=== PATIENT | male | born 1960 | race Caucasian/White ===

== ENCOUNTER 2018-07-14 20:27 | Inpatient (IN) ==
[2018-07-14] MEDS ORDERED: SODIUM CHLORIDE 0.9% 1000ML 2,000 ML IV SCH (20:45)
--- NOTE | 2018-07-14 20:49 | CT Scan Report ---
CT SCAN OF THE BRAIN WITHOUT IV CONTRAST CLINICAL HISTORY: Fall. Head injury. Seizure. COMPARISON STUDY: No priors. TECHNIQUE: Unenhanced axial CT scan of the brain is performed from the vertex to the skull base. A d ose lowering technique was utilized adhering to the principles of ALARA. The examination is degraded by suboptimal positioning within the CT gantry as well as motion artifact. FINDINGS: Brain parenchyma: The brain parenchyma is normal in appearance. There is no hemorrhage, mass effect, or evidence of acute territorial ischemia by CT criteria. Hamilton-white matter differentiation is preser graciela. No extra-axial fluid collection is seen. Ventricles, sulci, cisterns: Normal in configuration. Intracranial vasculature: There is mild atherosclerotic calcification of the cavernous carotid arteri es. Calvarium: There is no depressed calvarial fracture. Sinuses and mastoids: The visualized paranasal sinuses are clear. The mastoid air cells are well pneu matized. Orbits: The bony orbits are grossly intact. IMPRESSION: There is no hemorrhage, mass effect, or evidence of acute territorial ischemia by CT hector la. Electronically signed by: Gopi Light M.D. 07/14/2018 8:48 PM
--- NOTE | 2018-07-14 21:00 | CT Scan Report ---
CT SCAN OF THE CERVICAL SPINE CLINICAL HISTORY: Fall. Seizure. COMPARISON STUDY: No priors. TECHNIQUE: CT scan of the cervical spine is performed from the skull base to the upper thoracic spine . Images are reviewed in the axial, sagittal, and coronal planes. IV contrast was not administered fo r this examination. A dose lowering technique was utilized adhering to the principles of ALARA. CT DOSE: 1310.13 mGy.cm FINDINGS: Skeletal structures: The skeletal structures are well mineralized. There is no evidence of fracture o r subluxation involving the cervical spine. Vertebral body height and alignment are maintained. There is straightening of the cervical lordosis. Anterior osteophytes are seen throughout. The odontoid p rocess and lateral masses are intact. The atlantoaxial articulation is preserved noting productive de generative change. The spinous processes appear intact. There is mild to moderate multilevel cervical spondylosis. Uncovertebral and facet arthropathy contribute to neural foraminal narrowing at several levels. Intervertebral discs: The disc spaces are maintained. Central canal: A posterior disc osteophyte complex at C3-C4 may contribute to acquired compromise of the central canal. Soft tissues: The prevertebral and paraspinous soft tissues are within normal limits. Calvarium: The visualized calvarium at the skull base appears intact. Brain parenchyma: Partially visualized brain parenchyma the skull base is within normal limits. Sinuses and mastoids: The visualized paranasal sinuses are clear. The mastoid air cells are well pneu matized. Lung apices: Clear as visualized. IMPRESSION: 1. There is no evidence of fracture or subluxation involving the cervical spine. 2. Spondylotic change as above. Electronically signed by: Gopi Light M.D. 07/14/2018 8:59 PM
[2018-07-14 21:15] LABS: Basophils # (auto) 0.03 K/uL (0-0.2); Basophils % (auto) 0.2 %; Eosinophils # (auto) 0.21 K/uL (0-0.5); Eosinophils % (auto) 1.4 %; Hematocrit (blood only) 40.1 % (42-52); Hemoglobin 13.3 g/dL (14.0-18.0); Immature Granulocytes # (auto) 0.11 K/uL (0.00-0.02); Immature Granulocytes % (auto) 0.8 %; Lymphocytes # (auto) 4.08 K/uL (1.2-3.4); Mean Corpuscular Hgb Conc 33.2 g/dL (32-36); Mean Corpuscular Volume 86.4 fL (80-100); Mean Platelet Volume 9.8 fL (7.4-10.4); Monocytes # (auto) 0.72 K/uL (0.11-0.59); Monocytes % (auto) 4.9 %; Neutrophils # (auto) 9.42 K/uL (1.4-6.5); Neutrophils % (auto) 64.7 %; Platelet Count 349 K/uL (130-400); RDW Coefficient of Variation 13.2 % (11.5-14.5); RDW Standard Deviation 42.1 fL (36.4-46.3); Red Blood Count 4.64 M/uL (4.7-6.1); White Blood Count 14.57 K/uL (4.8-10.8)
[2018-07-14 21:33] LABS: Alanine Aminotransferase 26 U/L (12-78); Albumin Level 3.6 gm/dl (3.4-5.0); Aspartate Aminotransferase 18 U/L (15-37); BUN Creatinine Ratio 11.8 (10-20); Blood Urea Nitrogen 22 mg/dl (7-18); Calcium 8.9 mg/dl (8.5-10.1); Carbon Dioxide 14 mmol/L (21-32); Chloride 103 mmol/L (98-107); Creatinine Clr Calc Pharmacy 51.1 ml/min; Est GFR (African American) 45.5; Est GFR (Non-African American) 39.2; Glucose 272 mg/dl (70-99); Potassium 4.2 mmol/L (3.5-5.1); Sodium 138 mmol/L (136-145)
[2018-07-14 21:38] LABS: Albumin Globulin Ratio 0.9 (0.9-2); Alkaline Phosphatase 41 U/L (45-117); Bilirubin,Total 0.3 mg/dl (0.2-1); Globulin 3.9 gm/dl (2.5-4.0); Total Protein 7.5 gm/dl (6.4-8.2); Troponin I < 0.015 ng/ml (0-0.045)
--- NOTE | 2018-07-14 21:42 | XRay Report ---
SINGLE VIEW CHEST CLINICAL HISTORY: Seizure. FINDINGS: An AP, portable, upright chest radiograph is compared to study dated 10/03/2015 and correlat ed with chest CT dated 10/04/2015. The examination is degraded by portable technique, apical lordotic positioning, and patient rotation. The heart is top normal for projection. The mediastinal contour i s within normal limits. The lungs and pleural spaces are clear. No pneumothorax is seen. The bony tho rax is grossly intact. IMPRESSION: No active disease in the chest. Electronically signed by: Gopi Light M.D. 07/14/2018 9:41 PM
[2018-07-14 21:52] LABS: Appearance Urine Clear (Clear); Bacteria Urine Automated 1+ (Negative); Bilirubin Urine Negative (Negative); Blood Urine Negative (Negative); Color Urine Yellow; Epithelial Cell Urine Auto 0-5 /lpf (0-5); Glucose Urine UA 3+ (Negative); Ketones Urine Negative (Negative); Leukocyte Esterase Urine 1+ (Negative); Nitrite Urine Negative (Negative); Protein Urine Negative (Negative); RBC Urine Automated 0-4 /hpf (0-4); Specific Gravity Urine 1.022 (1.000-1.030); Urobilinogen Urine Negative (Negative); pH Urine 5.5 (4.5-7.5)
[2018-07-14 21:57] LABS: Amphetamines+Metham, Urine Neg (Neg); Barbiturates, Urine Neg (Neg); Benzodiazepine, Urine Neg (Neg); Cocaine, Urine Neg (Neg); MDMA (Ecstacy), Urine Neg (Neg); Methadone, Urine Neg (Neg); Opiate, Urine Neg (Neg); Phencyclidine, Urine Neg (Neg)
--- NOTE | 2018-07-14 22:54 | History & Physical Report ---
Date of Service July 14, 2018 Assessment & Plan (1) Seizure: Pt presented to ER with reported seizure like activity. reported this evening patient was sitting on couch when he started staring and not responding followed by shaking and unresponsive. En route EMS reports seizure activity and pt was given 2mg versed. Reported upon ER arrival pt unresponsive then awakens. Reported urinary incontinence. Patient reports slipped and fell on wet floor today and denies hitting head or LOC. Reported similar episode one year ago seen at outside facility with no further workup reported. In ER patient afebrile, initially sinus tachycardia 120s down to high 90s, BP 140/71, R: 22, 92% on room air. WBC: 14, Hgb: 13, no significant electrolyte abnormalities. Negative EtOH. Negative tox screen. CT head no acute findings. Patient was given Keppra 1000 mg IV, 2L NSS Possible seizure -Admit to telemetry -Seizure precautions -N.p.o. for now -Keppra 500 twice daily -Ativan 1 mg IV as needed for seizure -EEG -Neurology consult, appreciate recommendations -Monitor CBC, BMP (2) Renal insufficiency: Creatinine: 1.8. Unsure of recent baseline. Records from 2016 showed creatinine of 1.0. -Monitor renal functions, avoid nephrotoxic agents when possible (3) Wrist pain: Patient was reported fall on wet floor today at work injuring right wrist. Denies any other injury. -Pending x-ray right wrist to rule out fracture (4) Diabetes mellitus: DM II with history neuropathy Random glucose 272 -Hold home diabetes medications -NovoLog, Lantus sliding scale per protocol -A1c in a.m. -Continue gabapentin (5) Hypertension: Stable -Hold lisinopril and monitor renal functions -Monitor BP (6) HLD (hyperlipidemia): -Continue statin, fenofibrate DVT Prophylaxis -SCDs Follows with Dr Bustamante - [facility] for routine care Pt was seen with Dr Dillon. See addendum History of Present Illness Chief Complaint: seizure Primary Care Provider: Roderick Bustamante Pt is 57 y/o M with PMH DM II, HTN, HLD presented to ER with complaint of seizure. History obtained from patient and , as patient somewhat groggy. Patient's reports this evening patient was sitting on couch when he started staring and not responding to her. She then noticed him "stiffen up and start shaking with his eyes closed and was not responding". reports this lasted approximately 5 minutes. Did not take BSG at home. EMS was called and reports seizure activity in route and patient was given 2 Versed. Upon ER arrival which is reported patient initially unresponsive and then awakened during ER course. Reported urinary incontinence. reports similar episode occurring approximately 1 year ago and was evaluated at outside ER and reports no further workup. Patient states that he remembers waking up in the morning and going to work. 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 Patient states that he did not hit his head or have any LOC. He denies any dizziness, CP or SOB prior to fall. Patient states that he injured his right wrist with the fall. Patient remembers returning home after work and does not remember anything after. Patient's reports that he ate dinner. Currently pt reports slight LONG and some R wrist discomfort. 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 Denies any recent illness. Denies fever/chills, diaphoresis, N/V/D, neck pain, CP, SOB, palpitations, cough, sore throat, otalgia, rhinorrhea, abdominal pain, extremity edema, rashes, other urinary symptoms. Denies alcohol or drug use. Allergies Allergy/AdvReac Type Severity Reaction Status Date / Time metformin AdvReac Severe Diarrhea Verified 07/14/18 21:59 Home Medications Home Medications Medication Instructions Recorded Confirmed Type acarbose [Precose] 25 mg PO TIDM 07/14/18 07/14/18 History aspirin [Aspir-81] 81 mg PO DAILY 07/14/18 07/14/18 History atorvastatin [Lipitor] 40 mg PO HS 07/14/18 07/14/18 History fenofibrate micronized 134 mg PO DAILY 07/14/18 07/14/18 History gabapentin [Neurontin] 400 mg PO QID 07/14/18 07/14/18 History glipizide [Glucotrol XL] 10 mg PO BID 07/14/18 07/14/18 History liraglutide [Victoza 3-Bill] 1.8 mg SUBCUT DAILY 07/14/18 07/14/18 History lisinopril [Zestril] 10 mg PO DAILY 07/14/18 07/14/18 History Past Med/Surg History Medical History Diabetes mellitus (Chronic) Hypertension (Chronic) HLD (hyperlipidemia) (Chronic) Surgical History H/O removal of cyst (Chronic) Hx of tonsillectomy (Chronic) Social History Preferred Language: Lithuanian Communication Ability: Effective Communication Ability Comment: wakes to stimulus, answers questions appropriately 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 Current Living Situation: Spouse Feels Safe at Home: Yes Safety Concerns: Feels Safe At This Time Smoking Status: Never smoker Hx Alcohol Use: No Hx Substance Use: No Review of Systems All systems reviewed & are unremarkable except as noted in HPI & below Physical Exam Vital Signs (Past 24 Hours): Last Vital Signs Temp 37.2 C 07/14/18 20:40 Pulse 97 H 07/14/18 21:46 Resp 22 07/14/18 20:40 BP 119/58 L 07/14/18 21:46 Pulse Ox 95 07/14/18 21:46 Physical Exam: General: no acute distress, obese Head: normocephalic, atraumatic Eyes: PERRL, EOM's intact, conjunctiva non-injected, anicteric ENT: normal inspection external ears, nose, mucous membranes dry, +chewing tobacco flakes in mouth, no noted tongue laceration Neck: supple, trachea midline, non-tender Lungs: clear, no respiratory distress CV: Regular rhythm, rate 98, slight pretibial edema Abd: normal BS, soft, protuberant, non-tender Ext: no cyanosis, no calf tenderness, R wrist: diffuse tenderness to palpation, limited ROM secondary to discomfort Neuro: A&O to person, place, year. Pt slow to answer questions and slow to follow commands with need of repeat prompting, 3/5 strength bilateral arms and legs Skin: warm, dry Results & Data Laboratory Results Short CBC 07/14/18 Range/Units 20:48 WBC 14.57 H (4.8-10.8) K/uL Hgb 13.3 L (14.0-18.0) g/dL Hct 40.1 L (42-52) % Plt Count 349 (130-400) K/uL BMP 07/14/18 20:48 Sodium 138 Potassium 4.2 Chloride 103 Carbon Dioxide 14 L BUN 22 H Creatinine 1.84 H Glucose 272 H Calcium 8.9 Cardiac Enzymes 07/14/18 Range/Units 20:48 Troponin I < 0.015 (0-0.045) ng/ml Liver Function 07/14/18 Range/Units 20:48 Total Bilirubin 0.3 (0.2-1) mg/dl AST 18 (15-37) U/L ALT 26 (12-78) U/L Alkaline Phosphatase 41 L (45-117) U/L Albumin 3.6 (3.4-5.0) gm/dl Urine 07/14/18 Range/Units 21:17 Urine Color Yellow Urine Appearance Clear (Clear) Urine pH 5.5 (4.5-7.5) Ur Specific [place] 1.022 (1.000-1.030) Urine Protein Negative (Negative) Urine Glucose (UA) 3+ H (Negative) Diagnostic Findings CT HEAD: IMPRESSION: There is no hemorrhage, mass effect, or evidence of acute territorial ischemia by CT criteria. CT C SPINE: IMPRESSION: 1. There is no evidence of fracture or subluxation involving the cervical spine. 2. Spondylotic change as above. CXR: IMPRESSION: No active disease in the chest. ECG Rhythm: sinus tachycardia Findings: + RBBB (incomplete) Supervising Physician Co-Signing Physician Notes HISTORY: Record reviewed. Patient interviewed and examined. Care coordinated with Yulia Calero PA-C. Please refer to her documentation for patient's history. Briefly, 57 YO M with history of hypertension, DM, dyslipidemia. 2 witnessed generalized seizures today, one by family and one by EMS. EMS administered midazolam to control the 2nd episode. Reportedly incontinent with 1 of the episodes. No history of seizure disorder, although he reportedly had a "spell" about a year ago evaluated in another ED. No alcohol abuse. EXAM: General- somnolent, no distress HEENT- atraumatic; sclerae anicteric Neck- supple Lungs- clear to auscultation; no respiratory distress Cardiovascular- RRR; ; no JVD; no pretibial edema Abdomen- + bowel sounds, soft, nontender Extremities- no cyanosis; no calf tenderness Neuro- postictal / sedated; PERRL; unable to follow commands for motor testing Skin- warm & dry DATA: Hgb 13.3, WBC 14,570, Plts 349,000 Na 138, K 4.2, Cl 14, CO2 14, BUN 22, creat 1.84, random glucose 272. UA - 3+ glucose, 1+ leukocyte esteras, 10-30 WBCs, 1+ bacteria. Urine tox screen neg. Other lab studies as noted. Chest x-ray negative. CT head negative. CT cervical spine- spondylotic changes, no fracture. ASSESSMENT AND PLAN: Generalized seizures today. ? similar event last year. CT head negative. K normal. Check Mg with next labs. Urine tox screen negative. Loaded with levitiracetam. Check EEG. Consult Neuro. UA shows leukocyte esterase, WBC's, bacteria. Check urine culture. Right wrist injury from fall. Results of x-ray pending. DM type 2 with elevated blood sugars. Lantus / NovoLog per protocol. Renal insufficiency, ? baseline. IV fluids. Follow. Please refer to JACQUELINE Chandler's documentation for discussion of other issues.
[2018-07-14] MEDS ORDERED: GLUCAGON FOR INJ 1 MG VIAL SQ PRN (23:57)
[2018-07-14] MEDS ORDERED: SODIUM CHLORIDE 0.9% 1000ML 1,000 ML IV SCH (23:57)
[2018-07-14] MEDS ORDERED: DEXTROSE 50% 50 ML SYRINGE IV PRN (23:57)
[2018-07-14] MEDS ORDERED: CARBOHYDRATES FOR HYPOGLYCEMIA PO PRN (23:57)
[2018-07-14] MEDS ORDERED: LORazepam 1 MG/2 ML VIAL IV PRN (23:57)
[2018-07-14] MEDS ORDERED: GLUCOSE 40% GEL 15 GM TUBE PO PRN (23:57)
[2018-07-14] MEDS ORDERED: GLUCOSE 10 TABS/TUBE PO PRN (23:57)
--- NOTE | 2018-07-15 00:11 | Emergency Department Note ---
Entered by Zachariah Hanna acting as a scribe for History of Present Illness General Chief complaint: Seizure Stated complaint: SEIZURES, UNRESPONSIVE Time Seen by Provider: 07/14/18 20:32 Source: EMS Limitations: clinical acuity History of Present Illness Provider complaint: Seizure activity Onset (ago): hour(s) (1) Location: head Pain Consistency: + other (2 episodes) Quality: + other (Seizure-like activity) Associated symptoms: + confusion (Post-ichtal) Treatments prior to arrival: other (2 mg Versed) This history is limited secondary to the clinical status of the patient. The patient is a 57 year old male who presents to the Emergency Room via EMS for multiple seizure episodes. EMS states that per the patient's the patient was sitting on the couch in his residence at 1930 this evening, 1 hour ago, when he began to exhibit "outward posturing" and seizure activity. The estimates that this episode lasted 4 minutes. Upon EMS arrival the patient was post-ictal and exhibiting sonorous respirations. While en route to the ED the patient had another seizure episode that lasted about 30 seconds. EMS then administered 2 mg of Versed and placed the patient on 4L of oxygen via Nasal [place]. The patient has no diagnosed history of seizures, but was here in the ED 1 year ago for a similar episode. The told EMS that when the patient got home from work today he noted that he may have hit his head on a fall. The patient is an insulin dependent Type 1 diabetic. His sugar was 236 upon arrival. Home Medications Home Medications Medication Instructions Recorded Confirmed Type acarbose [Precose] 25 mg PO TIDM 07/14/18 07/14/18 History aspirin [Aspir-81] 81 mg PO DAILY 07/14/18 07/14/18 History atorvastatin [Lipitor] 40 mg PO HS 07/14/18 07/14/18 History fenofibrate micronized 134 mg PO DAILY 07/14/18 07/14/18 History gabapentin [Neurontin] 400 mg PO QID 07/14/18 07/14/18 History glipizide [Glucotrol XL] 10 mg PO BID 07/14/18 07/14/18 History liraglutide [Victoza 3-Bill] 1.8 mg SUBCUT DAILY 07/14/18 07/14/18 History lisinopril [Zestril] 10 mg PO DAILY 07/14/18 07/14/18 History Allergies Allergy/AdvReac Type Severity Reaction Status Date / Time metformin AdvReac Severe Diarrhea Verified 07/14/18 21:59 Past Med/Surg History Medical History Diabetes mellitus (Chronic) Hypertension (Chronic) HLD (hyperlipidemia) (Chronic) Surgical History H/O removal of cyst (Chronic) Hx of tonsillectomy (Chronic) Social History Preferred Language: Mexican Communication Ability: Effective Communication Ability Comment: wakes to stimulus, answers questions appropriately Digital Product Specialist Required: No Current Living Situation: Spouse Feels Safe at Home: Yes Safety Concerns: Feels Safe At This Time Smoking Status: Never smoker Hx Alcohol Use: No Hx Substance Use: No Review of Systems See HPI for pertinent positives & negatives. and A total of 10 systems reviewed and were otherwise negative Physical Exam Vital Signs Vital Signs - 24 hr 07/14/18 20:31 07/14/18 20:34 07/14/18 20:40 Temperature 37.2 C Temperature Source Oral Sepsis Recent Fever Within 48 Hours No Sepsis New/Unexplained Change in Mental Status Yes Sepsis Action Taken by Nursing No Action Required End-Tidal CO2 Pulse Rate 125 H 126 H 131 H Pulse Rate from SpO2 Sensor 125 H 126 H Pulse Rhythm Regular Pulse Strength Normal Respiratory Rate 22 Respiratory Effort / Characteristics Non-Labored Respiratory Depth Normal Respiratory Pattern Regular Blood Pressure 140/71 140/71 Blood Pressure Mean 94 94 Blood Pressure Position Lying Pulse Oximetry 92 93 92 Oxygen Delivery Method Room Air 07/14/18 20:48 07/14/18 21:00 07/14/18 21:01 Temperature Temperature Source Sepsis Recent Fever Within 48 Hours Sepsis New/Unexplained Change in Mental Status Sepsis Action Taken by Nursing End-Tidal CO2 27 26 Pulse Rate 130 H 107 H 106 H Pulse Rate from SpO2 Sensor 119 H 107 H 107 H Pulse Rhythm Pulse Strength Respiratory Rate Respiratory Effort / Characteristics Respiratory Depth Respiratory Pattern Blood Pressure 114/56 L Blood Pressure Mean 75 Blood Pressure Position Pulse Oximetry 91 93 93 Oxygen Delivery Method Room Air 07/14/18 21:15 07/14/18 21:16 07/14/18 21:23 Temperature Temperature Source Sepsis Recent Fever Within 48 Hours Sepsis New/Unexplained Change in Mental Status Sepsis Action Taken by Nursing End-Tidal CO2 27 29 30 Pulse Rate 105 H 111 H 99 H Pulse Rate from SpO2 Sensor 104 H 111 H 99 H Pulse Rhythm Pulse Strength Respiratory Rate Respiratory Effort / Characteristics Respiratory Depth Respiratory Pattern Blood Pressure 98/65 L 123/67 Blood Pressure Mean 76 85 Blood Pressure Position Pulse Oximetry 97 97 99 Oxygen Delivery Method 07/14/18 21:24 07/14/18 21:30 07/14/18 21:31 Temperature Temperature Source Sepsis Recent Fever Within 48 Hours Sepsis New/Unexplained Change in Mental Status Sepsis Action Taken by Nursing End-Tidal CO2 31 33 29 Pulse Rate 103 H 107 H 102 H Pulse Rate from SpO2 Sensor 103 H 107 H 103 H Pulse Rhythm Pulse Strength Respiratory Rate Respiratory Effort / Characteristics Respiratory Depth Respiratory Pattern Blood Pressure 119/71 Blood Pressure Mean 87 Blood Pressure Position Pulse Oximetry 100 97 98 Oxygen Delivery Method 07/14/18 21:45 07/14/18 21:46 07/14/18 22:25 Temperature Temperature Source Sepsis Recent Fever Within 48 Hours Sepsis New/Unexplained Change in Mental Status Sepsis Action Taken by Nursing End-Tidal CO2 33 33 Pulse Rate 98 H 97 H Pulse Rate from SpO2 Sensor 95 H 96 H Pulse Rhythm Pulse Strength Respiratory Rate Respiratory Effort / Characteristics Spontaneous Respiratory Depth Normal Respiratory Pattern Regular Blood Pressure 119/58 L Blood Pressure Mean 78 Blood Pressure Position Pulse Oximetry 95 95 Oxygen Delivery Method Room Air 07/14/18 23:03 Temperature Temperature Source Sepsis Recent Fever Within 48 Hours Sepsis New/Unexplained Change in Mental Status Sepsis Action Taken by Nursing End-Tidal CO2 Pulse Rate 95 H Pulse Rate from SpO2 Sensor Pulse Rhythm Pulse Strength Respiratory Rate 20 Respiratory Effort / Characteristics Respiratory Depth Respiratory Pattern Blood Pressure 119/66 Blood Pressure Mean Blood Pressure Position Pulse Oximetry 96 Oxygen Delivery Method Room Air GENERAL: Sitting up in bed, disheveled, no distress, non-toxic. Tobacco present throughout ortiz. EYE EXAM: normal conjunctiva. OROPHARYNX: no exudate, no erythema, lips, buccal mucosa, and tongue normal and mucous membranes are moist NECK: supple, no nuchal rigidity, no adenopathy, non-tender LUNGS: Clear to auscultation. Normal chest wall mechanics HEART: no murmurs, S1 normal and S2 normal ABDOMEN: abdomen soft, non-tender, normo-active bowel, sounds, no masses, no rebound or guarding. BACK: Back is symmetrical on inspection and there is no deformity, no midline tenderness, no CVA tenderness. SKIN: no rashes and no bruising UPPER EXTREMITIES: upper extremities are grossly normal. LOWER EXTREMITIES: No pitting edema. NEURO EXAM: Normal sensorium. Opens eyes to sternal rub. Spontaneously moves lower extremities. Responds to pain in upper extremities. Course ED COURSE: Vital signs were reviewed and showed normal vitals. The patients medical record was reviewed The above diagnostic studies were performed and reviewed. ED treatments and interventions as stated above. 2056: The patient was evaluated in room A1. A complete history and physical examination was performed. 2147: I reviewed the patient's case with Sidra Hicks [facility] Hospitalist CADEN. She will evaluate the patient for further management. 2150: Upon reevaluation, the patient is resting in bed. I discussed my findings with the patient and he understands and agrees with the treatment plan. Based on the patients age, coexisting illnesses, exam and lab findings the decision to treat as an inpatient was made. The patient remained stable while under my care. The patient will be evaluated for further management. Administered Medications Discontinued Medications Sodium Chloride (Nss 1000ml) 2,000 mls @ 999 mls/hr IV .Q2H1M HARMEET Stop: 07/14/18 22:45 Last Infusion: 07/14/18 23:14 Dose: 0 mls/hr Documented by: [id number] Admin: 07/14/18 21:01 Dose: 999 mls/hr Documented by: [id number] Levetiracetam 1,000 mg/ (Dextrose) 110 mls @ 440 mls/hr IV NOW STA Stop: 07/14/18 21:18 Last Infusion: 07/14/18 23:14 Dose: 0 mls/hr Documented by: [id number] Admin: 07/14/18 21:21 Dose: 440 mls/hr Documented by: [id number] Medical Decision Making Differential Diagnosis Differential diagnosis: Etiologies such as vasovagal event, infection, anemia, hypoglycemia, hypovolemia, electrolyte abnormalities, dysrhythmias, cardiac ischemia, cardiac tamponade, valvular heart disease, structural heart disease, seizure, vascular stenosis/dissection, pulmonary embolism, intracerebral event, toxicological process, neurologic event, as well as others were entertained. Medical Records Attestation: I reviewed the patient's medical records. Home Medications Current Medication List: was personally reviewed by me Laboratory Data Attestation: I reviewed the patient's lab results. Result diagrams: 07/14/18 20:48 07/14/18 20:48 Lab Results 07/14/18 07/14/18 07/14/18 Range/Units 20:48 20:48 20:48 WBC 14.57 H (4.8-10.8) K/uL RBC 4.64 L (4.7-6.1) M/uL Hgb 13.3 L (14.0-18.0) g/dL Hct 40.1 L (42-52) % MCV 86.4 (80-100) fL MCH 28.7 (25-34) pg MCHC 33.2 (32-36) g/dL RDW Std Deviation 42.1 (36.4-46.3) fL RDW Coeff of Love 13.2 (11.5-14.5) % Plt Count 349 (130-400) K/uL MPV 9.8 (7.4-10.4) fL Immature Gran % (Auto) 0.8 % Neut % (Auto) 64.7 % Lymph % (Auto) 28.0 % [place] % (Auto) 4.9 % Eos % (Auto) 1.4 % Baso % (Auto) 0.2 % Immature Gran # (Auto) 0.11 H (0.00-0.02) K/uL Neut # (Auto) 9.42 H (1.4-6.5) K/uL Lymph # (Auto) 4.08 H (1.2-3.4) K/uL [place] # (Auto) 0.72 H (0.11-0.59) K/uL Eos # (Auto) 0.21 (0-0.5) K/uL Baso # (Auto) 0.03 (0-0.2) K/uL Sodium 138 (136-145) mmol/L Potassium 4.2 (3.5-5.1) mmol/L Chloride 103 (98-107) mmol/L Carbon Dioxide 14 L (21-32) mmol/L Anion Gap 21.0 H (3-11) BUN 22 H (7-18) mg/dl Creatinine 1.84 H (0.6-1.4) mg/dl Est Cr Clr Drug Dosing 51.1 ml/min Est GFR ( Amer) 45.5 Est GFR (Non-Af Amer) 39.2 BUN/Creatinine Ratio 11.8 (10-20) Glucose 272 H (70-99) mg/dl Calcium 8.9 (8.5-10.1) mg/dl Total Bilirubin 0.3 (0.2-1) mg/dl AST 18 (15-37) U/L ALT 26 (12-78) U/L Alkaline Phosphatase 41 L (45-117) U/L Troponin I < 0.015 (0-0.045) ng/ml Total Protein 7.5 (6.4-8.2) gm/dl Albumin 3.6 (3.4-5.0) gm/dl Globulin 3.9 (2.5-4.0) gm/dl Albumin/Globulin Ratio 0.9 (0.9-2) Urine Color Urine Appearance (Clear) Urine pH (4.5-7.5) Ur Specific [place] (1.000-1.030) Urine Protein (Negative) Urine Glucose (UA) (Negative) Urine Ketones (Negative) Urine Blood (Negative) Urine Nitrite (Negative) Urine Bilirubin (Negative) Urine Urobilinogen (Negative) Ur Leukocyte Esterase (Negative) Urine WBC (Auto) (0-5) /hpf Urine RBC (Auto) (0-4) /hpf U Hyaline Cast (Auto) (0-5) /lpf U Epithel Cells (Auto) (0-5) /lpf Urine Bacteria (Auto) (Negative) Urine Opiates Screen (Neg) Ur Methadone, Qual (Neg) Urine Barbiturates (Neg) Ur Phencyclidine (PCP) (Neg) U Amphetamin/Meth Scrn (Neg) MDMA (Ecstasy) Screen (Neg) U Benzodiazepines Scrn (Neg) Ur Cocaine Metabolite (Neg) U Marijuana (THC) Screen (Neg) Ethyl Alcohol mg/dL < 3.0 (0-3) mg/dl Hepatitis C Ab Screen (Neg) 07/14/18 07/14/18 07/14/18 Range/Units 20:48 21:17 21:17 WBC (4.8-10.8) K/uL RBC (4.7-6.1) M/uL Hgb (14.0-18.0) g/dL Hct (42-52) % MCV (80-100) fL MCH (25-34) pg MCHC (32-36) g/dL RDW Std Deviation (36.4-46.3) fL RDW Coeff of Love (11.5-14.5) % Plt Count (130-400) K/uL MPV (7.4-10.4) fL Immature Gran % (Auto) % Neut % (Auto) % Lymph % (Auto) % [place] % (Auto) % Eos % (Auto) % Baso % (Auto) % Immature Gran # (Auto) (0.00-0.02) K/uL Neut # (Auto) (1.4-6.5) K/uL Lymph # (Auto) (1.2-3.4) K/uL [place] # (Auto) (0.11-0.59) K/uL Eos # (Auto) (0-0.5) K/uL Baso # (Auto) (0-0.2) K/uL Sodium (136-145) mmol/L Potassium (3.5-5.1) mmol/L Chloride (98-107) mmol/L Carbon Dioxide (21-32) mmol/L Anion Gap (3-11) BUN (7-18) mg/dl Creatinine (0.6-1.4) mg/dl Est Cr Clr Drug Dosing ml/min Est GFR ( Amer) Est GFR (Non-Af Amer) BUN/Creatinine Ratio (10-20) Glucose (70-99) mg/dl Calcium (8.5-10.1) mg/dl Total Bilirubin (0.2-1) mg/dl AST (15-37) U/L ALT (12-78) U/L Alkaline Phosphatase (45-117) U/L Troponin I (0-0.045) ng/ml Total Protein (6.4-8.2) gm/dl Albumin (3.4-5.0) gm/dl Globulin (2.5-4.0) gm/dl Albumin/Globulin Ratio (0.9-2) Urine Color Yellow Urine Appearance Clear (Clear) Urine pH 5.5 (4.5-7.5) Ur Specific [place] 1.022 (1.000-1.030) Urine Protein Negative (Negative) Urine Glucose (UA) 3+ H (Negative) Urine Ketones Negative (Negative) Urine Blood Negative (Negative) Urine Nitrite Negative (Negative) Urine Bilirubin Negative (Negative) Urine Urobilinogen Negative (Negative) Ur Leukocyte Esterase 1+ H (Negative) Urine WBC (Auto) 10-30 H (0-5) /hpf Urine RBC (Auto) 0-4 (0-4) /hpf U Hyaline Cast (Auto) 1-5 (0-5) /lpf U Epithel Cells (Auto) 0-5 (0-5) /lpf Urine Bacteria (Auto) 1+ H (Negative) Urine Opiates Screen Neg (Neg) Ur Methadone, Qual Neg (Neg) Urine Barbiturates Neg (Neg) Ur Phencyclidine (PCP) Neg (Neg) U Amphetamin/Meth Scrn Neg (Neg) MDMA (Ecstasy) Screen Neg (Neg) U Benzodiazepines Scrn Neg (Neg) Ur Cocaine Metabolite Neg (Neg) U Marijuana (THC) Screen Neg (Neg) Ethyl Alcohol mg/dL (0-3) mg/dl Hepatitis C Ab Screen Neg (Neg) Imaging Data Attestation: I personally reviewed and interpreted this imaging study as follow s: Radiologist's Impression: SINGLE VIEW CHEST CLINICAL HISTORY: Seizure. FINDINGS: An AP, portable, upright chest radiograph is compared to study dated 10/03/2015 and correlated with chest CT dated 10/04/2015. The examination is degraded by portable technique, apical lordotic positioning, and patient rotation. The heart is top normal for projection. The mediastinal contour is within normal limits. The lungs and pleural spaces are clear. No pneumothorax is seen. The bony thorax is grossly intact. IMPRESSION: No active disease in the chest. Electronically signed by: Gopi Light M.D. 07/14/2018 9:[address] SCAN OF THE BRAIN WITHOUT IV CONTRAST CLINICAL HISTORY: Fall. Head injury. Seizure. COMPARISON STUDY: No priors. TECHNIQUE: Unenhanced axial CT scan of the brain is performed from the vertex to the skull base. A dose lowering technique was utilized adhering to the principles of ALARA. The examination is degraded by suboptimal positioning within the CT gantry as well as motion artifact. FINDINGS: Brain parenchyma: The brain parenchyma is normal in appearance. There is no hemorrhage, mass effect, or evidence of acute territorial ischemia by CT criteria. Hamilton-white matter differentiation is preserved. No extra-axial fluid collection is seen. Ventricles, sulci, cisterns: Normal in configuration. Intracranial vasculature: There is mild atherosclerotic calcification of the cavernous carotid arteries. Calvarium: There is no depressed calvarial fracture. Sinuses and mastoids: The visualized paranasal sinuses are clear. The mastoid air cells are well pneumatized. Orbits: The bony orbits are grossly intact. IMPRESSION: There is no hemorrhage, mass effect, or evidence of acute jeremias torial ischemia by CT criteria. Electronically signed by: Gopi Light M.D. 07/14/2018 8:[address] SCAN OF THE CERVICAL SPINE CLINICAL HISTORY: Fall. Seizure. COMPARISON STUDY: No priors. TECHNIQUE: CT scan of the cervical spine is performed from the skull base to the upper thoracic spine. Images are reviewed in the axial, sagittal, and coronal planes. IV contrast was not administered for this examination. A dose lowering technique was utilized adhering to the principles of ALARA. CT DOSE: 1310.13 mGy.cm FINDINGS: Skeletal structures: The skeletal structures are well mineralized. There is no evidence of fracture or subluxation involving the cervical spine. Vertebral body height and alignment are maintained. There is straightening of the cervical lordosis. Anterior osteophytes are seen throughout. The odontoid process and lateral masses are intact. The atlantoaxial articulation is preserved noting productive degenerative change. The spinous processes appear intact. There is mild to moderate multilevel cervical spondylosis. Uncovertebral and facet arthropathy contribute to neural foraminal narrowing at several levels. Intervertebral discs: The disc spaces are maintained. Central canal: A posterior disc osteophyte complex at C3-C4 may contribute to acquired compromise of the central canal. Soft tissues: The prevertebral and paraspinous soft tissues are within normal limits. Calvarium: The visualized calvarium at the skull base appears intact. Brain parenchyma: Partially visualized brain parenchyma the skull base is within normal limits. Sinuses and mastoids: The visualized paranasal sinuses are clear. The mastoid air cells are well pneumatized. Lung apices: Clear as visualized. IMPRESSION: 1. There is no evidence of fracture or subluxation involving the cervical spine. 2. Spondylotic change as above. Electronically signed by: Gopi Light M.D. 07/14/2018 8:59 PM ECG Data Attestation: I personally reviewed and interpreted this ECG as follows: Indication: syncope (seizure) Rate (beats per minute): 127 Rhythm: sinus tachycardia Findings: + other (LAD) and + nonspecific-ST abn (inferior); no PVC Blood Pressure Blood Pressure Findings: Normal blood pressure MDM Narrative Patient is a 57-year-old male who presents the ER for 2 seizures prior to arrival. Patient was given IV Versed via EMS and upon arrival to the ER he opens his eyes to sternal rub but is fairly obtunded. He eventually started w aking up and started moving his extremities spontaneously and was able to communicate. Labs were obtained and showed a leukocytosis of 14,000. No significant anemia. Do favor secondary to the seizure. CO2 was low at 14 and creatinine was up at 1.8. Again I believe the CO2 is likely secondary to the seizure. Glucose is only slightly elevated to 70. Do not believe that the Is secondary to DKA. Troponin was negative. UA without ketones which would go against DKA. Tox is negative. CT head and neck was negative. Patient and family were updated bedside. He was given IV fluids and IV Keppra. He was admitted to the hospitalist for further workup of status epilepticus. Impression & Plan Status epilepticus Discharge Plan Visit Data *Final* Discharge Date/Time: 07/14/18 23:03 Chief Complaint: Seizure Stated Complaint: SEIZURES, UNRESPONSIVE ED Provider: Trevor Gonzalez Discharge Problem: Status epilepticus Patient Disposition: Admitted As Inpatient Discharge Instructions Interventions: ED Discharge Assessment Last Done: 07/14/18 23:03 The scribe's documentation has been prepared under my direction and personally reviewed by me in its entirety. I confirm that the note above accurately reflects all work, treatment, procedures, and medical decision making performed by me.
[2018-07-15] MEDS: INSULIN GLARGINE SOLOSTAR 100 UNITS/ML 3 ML PEN SC SCH ×3 (00:47→20:37)
[2018-07-15] MEDS ORDERED: INSULIN ASPART 100 UNITS/ML 3 ML PEN SC ONE (00:59)
--- NOTE | 2018-07-15 06:36 | XRay Report ---
XR wrist RT min 3V routine HISTORY: 57 years-old Male injury, wrist pain acute right wrist pain status post fall with seizure COMPARISON: None available TECHNIQUE: 4 views of the right wrist FINDINGS: Mild radiocarpal with moderate first carpometacarpal osteoarthritis. Scapholunate interval measures t he upper limits of normal at 3 mm. No acute fracture identified. Soft tissue swelling noted about the wrist. Indeterminate 3 mm round radiodensity projects over the medial hand. IMPRESSION: 1. Soft tissue swelling without acute fracture or dislocation. 2. 3 mm round radiodensity projects over the medial hand. Correlate clinically to exclude foreign bod y. 3. Degenerative changes as above with widening of the scapholunate interval, possibly reflective of u nderlying scapholunate tear. The above report was generated using voice recognition software. It may contain grammatical, syntax o r spelling errors. Electronically signed by: Thor Sheppard M.D. 07/15/2018 6:35 AM
[2018-07-15 07:12] LABS: Basophils # (auto) 0.01 K/uL (0-0.2); Basophils % (auto) 0.1 %; Eosinophils # (auto) 0.06 K/uL (0-0.5); Eosinophils % (auto) 0.8 %; Hematocrit (blood only) 35.7 % (42-52); Hemoglobin 11.8 g/dL (14.0-18.0); Immature Granulocytes # (auto) 0.02 K/uL (0.00-0.02); Immature Granulocytes % (auto) 0.3 %; Lymphocytes # (auto) 1.67 K/uL (1.2-3.4); Lymphocytes % (auto) 22.3 %; Mean Corpuscular Hgb Conc 33.1 g/dL (32-36); Mean Corpuscular Volume 85.8 fL (80-100); Mean Platelet Volume 9.7 fL (7.4-10.4); Monocytes # (auto) 0.61 K/uL (0.11-0.59); Monocytes % (auto) 8.1 %; Neutrophils # (auto) 5.13 K/uL (1.4-6.5); Neutrophils % (auto) 68.4 %; Platelet Count 239 K/uL (130-400); RDW Coefficient of Variation 13.5 % (11.5-14.5); RDW Standard Deviation 42.2 fL (36.4-46.3); Red Blood Count 4.16 M/uL (4.7-6.1)
[2018-07-15 07:45] LABS: BUN Creatinine Ratio 17.5 (10-20); Calcium 7.7 mg/dl (8.5-10.1); Creatinine Clr Calc Pharmacy 80.2 ml/min; Est GFR (Non-African American) 70.8; Magnesium 2.2 mg/dl (1.8-2.4); Potassium 3.7 mmol/L (3.5-5.1)
[2018-07-15 09:18] LABS: Estimated Average Glucose 220 mg/dl; Hemoglobin A1C 9.3 % (4.5-5.6)
[2018-07-15] MEDS: FENOFIBRATE - ORDER AWAITING ACTION SCH ×3 (09:21→23:33)
[2018-07-15] MEDS: INSULIN ASPART 100 UNITS/ML 3 ML PEN SC SCH ×4 (09:21→20:35)
[2018-07-15] MEDS: cefTRIAXone SODIUM 1,000 MG in DEXTROSE 5% 50 ML IV SCH (09:22)
[2018-07-15] MEDS: ASPIRIN 81 MG ECTAB PO SCH (09:22)
[2018-07-15] MEDS: GABAPENTIN 400 MG CAP PO SCH ×4 (09:22→20:13)
[2018-07-15 09:52] LABS: Appearance Urine Clear (Clear); Bacteria Urine Automated 2+ (Negative); Bilirubin Urine Negative (Negative); Blood Urine Negative (Negative); Color Urine Yellow; Glucose Urine UA 3+ (Negative); Ketones Urine Negative (Negative); Leukocyte Esterase Urine Trace (Negative); Nitrite Urine Negative (Negative); Protein Urine Negative (Negative); RBC Urine Automated 0-4 /hpf (0-4); Urobilinogen Urine Negative (Negative); WBC Urine Automated >30 /hpf (0-5)
[2018-07-15 10:46] LABS: Amphetamines+Metham, Urine Neg (Neg); Barbiturates, Urine Neg (Neg); Benzodiazepine, Urine Pos (Neg); Cocaine, Urine Neg (Neg); MDMA (Ecstacy), Urine Neg (Neg); Methadone, Urine Neg (Neg); Opiate, Urine Neg (Neg); Phencyclidine, Urine Neg (Neg)
[2018-07-15] MEDS ORDERED: NSS + 20MEQ KCL 20 MEQ/1,000 ML BAG IV ONE (12:45)
--- NOTE | 2018-07-15 13:15 | Hospitalist Progress Note ---
Date of Service July 15, 2018 Assessment & Plan (1) Seizure: Seizure CT head:There is no hemorrhage, mass effect, or evidence of acute territorial ischemia by CT criteria. Neck CT:There is no evidence of fracture or subluxation involving the cervical spine. Spondylotic change MRI Brain:pending EEG:Pending Urine Tox Screen: Negative Seizure/Aspiration precautions Continue Keppra Lorazepam PRN Neurology Consulted PT/OT (2) Renal insufficiency: Unsure baseline Cr. Records from 2016 showed creatinine of 1.0. Cr: 1.84>>1.13 Avoid nephrotoxic agents when possible Monitor renal function Gentle IV fluids Possible UTI Abnormal UA Denies Dysuria Started on Ceftriaxone Empirically Day #1 Urine Culture: Pending (3) Wrist pain: Wrist Sprain Possible scapholunate tear s/p Mechanical Fall --Right Wrist X ray: Soft tissue swelling without acute fracture or dislocation. 3 mm round radiodensity projects over the medial hand. Correlate clinically to exclude foreign body.. Degenerative changes as above with widening of the scapholunate interval, possibly reflective of underlying scapholunate tear. --Continue Wrist Splint --Discussed with Ortho--Recommended to follow up as outpatient (4) Diabetes mellitus: DM II Diabetic Neuropathy A1C:9.3 Hold PO Meds Continue ISS Continue gabapentin (5) Hypertension: Stable Hold lisinopril due to DOMO fo now Monitor (6) HLD (hyperlipidemia): Continue statin, fenofibrate DVT Px: -SCDs for now Disposition To be determined PT/OT prior to discharge Follows with Dr Robby Branch for routine care Subjective Patient is seen and examined at bedside More alert, awake today Complains of feeling very weak and tired Has B/L LE leg pain--chronic due to Neuropathy Denies chest pain, SOB, dizziness, dysuria Right wrist in splint--denies pain Family at bedside Physical Exam Vital Signs (Past 24 Hours): Last Vital Signs Temp 37.2 C 07/15/18 12:07 Pulse 70 07/15/18 12:07 Resp 18 07/15/18 12:07 BP 111/60 07/15/18 12:07 Pulse Ox 97 07/15/18 12:07 Physical Exam: Physical Exam: Vitals signs as noted above General Appearance:ill appearing, no apparent distress Head: normocephalic, Atraumatic Eyes: normal inspection, EOMI Neck: supple, Trachea midline Respiratory/Chest: Normal breath sounds, CTA Cardiovascular: S1, S2, No murmur Abdomen/GI:Soft, Non tender, Bowel sounds present Extremities/Musculoskelatal:normal inspection, Trace edema Neurologic/Psych:AAOX3, B/L LE 3/5. Right Wrist in Splint Skin: normal color, warm Results & Data Laboratory Results Short CBC 07/14/18 07/15/18 Range/Units 20:48 06:53 WBC 14.57 H 7.50 (4.8-10.8) K/uL Hgb 13.3 L 11.8 L (14.0-18.0) g/dL Hct 40.1 L 35.7 L (42-52) % Plt Count 349 239 (130-400) K/uL BMP 07/14/18 07/15/18 20:48 06:53 Sodium 138 141 Potassium 4.2 3.7 Chloride 103 110 H Carbon Dioxide 14 L 25 BUN 22 H 20 H Creatinine 1.84 H 1.13 D Glucose 272 H 147 H Calcium 8.9 7.7 L Cardiac Enzymes 07/14/18 Range/Units 20:48 Troponin I < 0.015 (0-0.045) ng/ml Liver Function 07/14/18 Range/Units 20:48 Total Bilirubin 0.3 (0.2-1) mg/dl AST 18 (15-37) U/L ALT 26 (12-78) U/L Alkaline Phosphatase 41 L (45-117) U/L Albumin 3.6 (3.4-5.0) gm/dl Urine 07/14/18 07/15/18 Range/Units 21:17 09:25 Urine Color Yellow Yellow Urine Appearance Clear Clear (Clear) Urine pH 5.5 5.0 (4.5-7.5) Ur Specific [place] 1.022 1.030 (1.000-1.030) Urine Protein Negative Negative (Negative) Urine Glucose (UA) 3+ H 3+ H (Negative)
--- NOTE | 2018-07-15 13:42 | Neurology Consultation ---
Date of Consultation July 15, 2018 Assessment & Plan (1) Seizure: 1. MRI brain with and without -pending- any seizure focus 2. EEG -no seizure focus 3. Keppra 500 mg BID for now 4. optimize blood pressure, DM, HLD 5. discussed no driving until seizure free for 6 months he voiced understanding 6. no swimming or bathing alone no heights 7. medical management per primary team 8. UTI - treat to culture follow up in neurology 4-6 weeks after discharge from hospital Veronica Oliveira PAC schedule Supervising Physician Co-Signing Physician Notes I have seen and discussed above patient with Dr Lalit Parekh, neurology I have seen Mr. Khalil today, reviewed his history, interviewed him, done a brief exam, reviewed his history with Veronica Oliveira PA-C and the plans for further evaluation and treatment she has outlined above. This man has nothing on exam other than evidence for a diabetic polyneuropathy and his CAT scan and neurologic examination otherwise showed no focal abnormalities but seizure disorder (of at least a years duration) small neoplastic process or anything that might have caused a cortical scarring and secondary seizure His EEG thus far is normal We are awaiting the results of the MRI with and without contrast. He is currently on 500 mg of Keppra IV every 12 hours and hopefully will be able to tolerate some of the behavioral issues we sometimes encounter with this agent. We will check back with him tomorrow, reviewed the MRI and then outlined further policies regarding his outpatient follow-up. Currently has evidence for urinary tract infection and may therefore be in the hospital a little longer than anticipated depending on how complicated treatment of this may prove to be. Lalit Parekh MD History of Present Illness Reason for Consultation: seizure Requesting Physician: Espinoza Taylor MD Attending Physician: Espinoza Taylor MD History of Present Illness Saurabh is a 57 year old male with PMH DM II, HTN, HLD was brought to the ED with witnessed seizure. reported he was sitting on couch when he started staring and not responding to her. She then noticed him "stiffen up and start shaking with his eyes closed and was not responding" This lasted approximately 5 minutes. EMS was called and reports seizure activity in route and he was given 2 Versed. In the ER he was initially unresponsive and then awakened during ER course. +incontinence. He had a similar episode approximately 1 year ago and was evaluated at outside ER and reports no further workup. He recalls waking up in the morning and going to work. 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 He states he did not hit his head or have any LOC. His right wrist and shoulder is hurting from the fall. He returned home after work and does not remember anything after. According to his he ate dinner. He is currently complaining of R wrist and shoulder pain and his tongue hurts. He has chronic bilateral foot neuropathy and has been having left ankle pain "for awhile". 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 denies CP, SOB, abdominal pain, one sided weakness, numbness tingling, N, V, vision changes, headache, bowel or bladder issues, starring spells morning jerks Allergies Allergy/AdvReac Type Severity Reaction Status Date / Time metformin AdvReac Severe Diarrhea Verified 07/14/18 21:59 Home Medications Home Medications Medication Instructions Recorded Confirmed Type acarbose [Precose] 25 mg PO TIDM 07/14/18 07/14/18 History aspirin [Aspir-81] 81 mg PO DAILY 07/14/18 07/14/18 History atorvastatin [Lipitor] 40 mg PO HS 07/14/18 07/14/18 History fenofibrate micronized 134 mg PO DAILY 07/14/18 07/14/18 History gabapentin [Neurontin] 400 mg PO QID 07/14/18 07/14/18 History glipizide [Glucotrol XL] 10 mg PO BID 07/14/18 07/14/18 History liraglutide [Victoza 3-Bill] 1.8 mg SUBCUT DAILY 07/14/18 07/14/18 History lisinopril [Zestril] 10 mg PO DAILY 07/14/18 07/14/18 History Patient History Medical History Diabetes mellitus (Chronic) Hypertension (Chronic) HLD (hyperlipidemia) (Chronic) Surgical History H/O removal of cyst (Chronic) Hx of tonsillectomy (Chronic) Social History Communication Ability: Effective Current Living Situation: Spouse Feels Safe at Home: Yes Safety Concerns: Feels Safe At This Time Smoking Status: Never smoker Hx Alcohol Use: No Hx Substance Use: No Physical Exam Vital Signs (Past 24 Hours): Last Vital Signs Temp 37.2 C 07/15/18 12:07 Pulse 70 07/15/18 12:07 Resp 18 07/15/18 12:07 BP 111/60 07/15/18 12:07 Pulse Ox 97 07/15/18 12:07 Physical Exam: Constitutional: appearance over nourished, healthy Ears, Nose, Mouth and Throat: mucous membranes moist, no injection and skin normal, eyes normal, bilateral tongue laceration Cardiovascular: normal S-1 and S-2 and regular rate and rhythm Respiratory: clear to auscultation (CTA) and no rales, rhonchi or wheeze Musculoskeletal: bilateral 2+ peripheral edema and distant distal pulses Skin: no stigmata of neurocutaneous disease noted and normal and intact Eyes: extraocular muscles intact (EOMI) and pupils equal, round and reactive to light (PERRL) NEUROLOGIC EXAMINATION: Mental status: Alert and interactive Oriented to full date and location Oriented to person Speech fluent with no evidence of aphasia Cranial Nerves facial symmetric eye brow raise symmetric Reflexes: Deep tendon reflexes were symmetrical and graded 2/5. Plantar responses neutral Sensory: bilaterally sensation loss to light touch, vibration to mid calf Coordination: finger to nose bilaterally intact Gait/Stance: Posture sitting in bedside chair Motor: Negative for pronator drift of out stretched arms with eyes closed. Strength: biceps triceps hand downstream biomanufacturing technician 5/5 bilaterally, hip flex plantar flex ext 5/5 Results & Data Laboratory Results Abnormal lab results 07/14/18 07/14/18 07/14/18 Range/Units 20:48 20:48 21:17 WBC 14.57 H (4.8-10.8) K/uL RBC 4.64 L (4.7-6.1) M/uL Hgb 13.3 L (14.0-18.0) g/dL Hct 40.1 L (42-52) % Immature Gran # (Auto) 0.11 H (0.00-0.02) K/uL Neut # (Auto) 9.42 H (1.4-6.5) K/uL Lymph # (Auto) 4.08 H (1.2-3.4) K/uL Benton # (Auto) 0.72 H (0.11-0.59) K/uL Chloride (98-107) mmol/L Carbon Dioxide 14 L (21-32) mmol/L Anion Gap 21.0 H (3-11) BUN 22 H (7-18) mg/dl Creatinine 1.84 H (0.6-1.4) mg/dl Glucose 272 H (70-99) mg/dl POC Glucose (70-99) Hemoglobin A1c (4.5-5.6) % Calcium (8.5-10.1) mg/dl Alkaline Phosphatase 41 L (45-117) U/L Urine Glucose (UA) 3+ H (Negative) Ur Leukocyte Esterase 1+ H (Negative) Urine WBC (Auto) 10-30 H (0-5) /hpf U Epithel Cells (Auto) (0-5) /lpf Urine Bacteria (Auto) 1+ H (Negative) U Benzodiazepines Scrn (Neg) 07/15/18 07/15/18 07/15/18 Range/Units 00:37 06:53 06:53 WBC (4.8-10.8) K/uL RBC 4.16 L (4.7-6.1) M/uL Hgb 11.8 L (14.0-18.0) g/dL Hct 35.7 L (42-52) % Immature Gran # (Auto) (0.00-0.02) K/uL Neut # (Auto) (1.4-6.5) K/uL Lymph # (Auto) (1.2-3.4) K/uL Benton # (Auto) 0.61 H (0.11-0.59) K/uL Chloride 110 H (98-107) mmol/L Carbon Dioxide (21-32) mmol/L Anion Gap (3-11) BUN 20 H (7-18) mg/dl Creatinine (0.6-1.4) mg/dl Glucose 147 H (70-99) mg/dl POC Glucose 340 H (70-99) Hemoglobin A1c (4.5-5.6) % Calcium 7.7 L (8.5-10.1) mg/dl Alkaline Phosphatase (45-117) U/L Urine Glucose (UA) (Negative) Ur Leukocyte Esterase (Negative) Urine WBC (Auto) (0-5) /hpf U Epithel Cells (Auto) (0-5) /lpf Urine Bacteria (Auto) (Negative) U Benzodiazepines Scrn (Neg) 07/15/18 07/15/18 07/15/18 Range/Units 06:53 07:24 09:25 WBC (4.8-10.8) K/uL RBC (4.7-6.1) M/uL Hgb (14.0-18.0) g/dL Hct (42-52) % Immature Gran # (Auto) (0.00-0.02) K/uL Neut # (Auto) (1.4-6.5) K/uL Lymph # (Auto) (1.2-3.4) K/uL Benton # (Auto) (0.11-0.59) K/uL Chloride (98-107) mmol/L Carbon Dioxide (21-32) mmol/L Anion Gap (3-11) BUN (7-18) mg/dl Creatinine (0.6-1.4) mg/dl Glucose (70-99) mg/dl POC Glucose 137 H (70-99) Hemoglobin A1c 9.3 H (4.5-5.6) % Calcium (8.5-10.1) mg/dl Alkaline Phosphatase (45-117) U/L Urine Glucose (UA) 3+ H (Negative) Ur Leukocyte Esterase Trace H (Negative) Urine WBC (Auto) >30 H (0-5) /hpf U Epithel Cells (Auto) 5-10 H (0-5) /lpf Urine Bacteria (Auto) 2+ H (Negative) U Benzodiazepines Scrn (Neg) 07/15/18 07/15/18 Range/Units 09:25 11:22 WBC (4.8-10.8) K/uL RBC (4.7-6.1) M/uL Hgb (14.0-18.0) g/dL Hct (42-52) % Immature Gran # (Auto) (0.00-0.02) K/uL Neut # (Auto) (1.4-6.5) K/uL Lymph # (Auto) (1.2-3.4) K/uL Benton # (Auto) (0.11-0.59) K/uL Chloride (98-107) mmol/L Carbon Dioxide (21-32) mmol/L Anion Gap (3-11) BUN (7-18) mg/dl Creatinine (0.6-1.4) mg/dl Glucose (70-99) mg/dl POC Glucose 155 H (70-99) Hemoglobin A1c (4.5-5.6) % Calcium (8.5-10.1) mg/dl Alkaline Phosphatase (45-117) U/L Urine Glucose (UA) (Negative) Ur Leukocyte Esterase (Negative) Urine WBC (Auto) (0-5) /hpf U Epithel Cells (Auto) (0-5) /lpf Urine Bacteria (Auto) (Negative) U Benzodiazepines Scrn Pos H (Neg) Diagnostic Findings CT spine -There is no evidence of fracture or subluxation involving the cervical spine. Spondylotic change as above. CT head- There is no hemorrhage, mass effect, or evidence of acute territorial ischemia by CT criteria. CXR- No active disease in the chest. xray right wrist- Soft tissue swelling without acute fracture or dislocation. 3 mm round radiodensity projects over the medial hand. Correlate clinically to exclude foreign body. Degenerative changes as above with widening of the scapholunate interval, possibly reflective of underlying scapholunate tear.
--- NOTE | 2018-07-15 15:10 | Procedure Note ---
EEG Procedure Note Date of Service July 15, 2018 Start / End Times Start Time: 0800 End Time: 0830 Referring Physician Lalit Parekh MD History Seizures Home Medication List Home Medications Medication Instructions Recorded Confirmed Type acarbose [Precose] 25 mg PO TIDM 07/14/18 07/14/18 History aspirin [Aspir-81] 81 mg PO DAILY 07/14/18 07/14/18 History atorvastatin [Lipitor] 40 mg PO HS 07/14/18 07/14/18 History fenofibrate micronized 134 mg PO DAILY 07/14/18 07/14/18 History gabapentin [Neurontin] 400 mg PO QID 07/14/18 07/14/18 History glipizide [Glucotrol XL] 10 mg PO BID 07/14/18 07/14/18 History liraglutide [Victoza 3-Bill] 1.8 mg SUBCUT DAILY 07/14/18 07/14/18 History lisinopril [Zestril] 10 mg PO DAILY 07/14/18 07/14/18 History Inpatient Medication List Aspirin (Ecotrin Ectab) 81 mg PO DAILY [facility] Stop: 08/14/18 08:59 Last Admin: 07/15/18 09:22 Dose: 81 mg Documented by: [id number] Gabapentin (Neurontin) 400 mg PO QID [facility] Stop: 08/14/18 08:59 Last Admin: 07/15/18 12:11 Dose: 400 mg Documented by: [id number] Admin: 07/15/18 09:22 Dose: 400 mg Documented by: [id number] Levetiracetam 500 mg/ Dextrose 105 mls @ 420 mls/hr IV Q12H [facility] Stop: 08/14/18 08:59 Last Infusion: 07/15/18 10:24 Dose: 0 mls/hr Documented by: [id number] Admin: 07/15/18 10:04 Dose: 420 mls/hr Documented by: [id number] Ceftriaxone Sodium 1,000 mg/ (Dextrose) 50 mls @ 100 mls/hr IV Q24H [facility]; Protocol Stop: 07/20/18 08:29 Last Infusion: 07/15/18 10:10 Dose: 0 mls/hr Documented by: [id number] Admin: 07/15/18 09:22 Dose: 100 mls/hr Documented by: [id number] Potassium Chloride/Sodium Chloride (Normal Saline W/20 Meq Kcl) 20 meq in 1,000 mls @ 80 mls/hr IV .[id number] ONE Stop: 07/16/18 01:14 Last Admin: 07/15/18 13:59 Dose: 80 mls/hr Documented by: [id number] Insulin Aspart (Novolog Flexpen) 0 units SC ACHS [facility] Stop: 08/14/18 07:29 Last Admin: 07/15/18 12:12 Dose: 9 units Documented by: [id number] Cosigned by: [id number] Admin: 07/15/18 09:21 Dose: Not Given Documented by: [id number] Cosigned by: [id number] Insulin Glargine (Lantus Solostar Pen) 0 units SC BID [facility]; Protocol Stop: 08/13/18 23:56 Last Admin: 07/15/18 09:23 Dose: 8 units Documented by: [id number] Cosigned by: [id number] Admin: 07/15/18 00:47 Dose: 16 units Documented by: [id number] Cosigned by: [id number] Miscellaneous (Order Awaiting Action) 1 ea N/A QS [facility] Stop: 08/14/18 07:59 Last Admin: 07/15/18 09:21 Dose: Not Given Documented by: [id number] Discontinued Medications Sodium Chloride (Nss 1000ml) 2,000 mls @ 999 mls/hr IV .[id number] [facility] Stop: 07/14/18 22:45 Last Infusion: 07/14/18 23:14 Dose: 0 mls/hr Documented by: [id number] Admin: 07/14/18 21:01 Dose: 999 mls/hr Documented by: [id number] Levetiracetam 1,000 mg/ (Dextrose) 110 mls @ 440 mls/hr IV NOW STA Stop: 07/14/18 21:18 Last Infusion: 07/14/18 23:14 Dose: 0 mls/hr Documented by: [id number] Admin: 07/14/18 21:21 Dose: 440 mls/hr Documented by: [id number] Sodium Chloride (Nss 1000ml) 1,000 mls @ 80 mls/hr IV .[id number] [facility] Stop: 07/15/18 12:26 Last Infusion: 07/15/18 12:10 Dose: 0 mls/hr Documented by: [id number] Infusion: 07/15/18 10:24 Dose: 80 mls/hr Documented by: [id number] Infusion: 07/15/18 09:26 Dose: 0 mls/hr Documented by: [id number] Admin: 07/15/18 00:41 Dose: 80 mls/hr Documented by: [id number] Insulin Aspart (Novolog Flexpen) 10 units SC NOW ONE Stop: 07/15/18 01:00 Last Admin: 07/15/18 01:52 Dose: 10 units Documented by: [id number] Cosigned by: [id number] Description This is a 21 electrode EEG with a single channel dedicated to limited EKG. The electrodes were placed in accordance with the International 10-20 system. This EEG was done as a bedside recording with simultaneous video analysis of patient movement and behavior. Photic stimulation was performed. Drowsiness and light sleep are not recorded. There is normal background activity in the alpha range in the posterior head regions which is symmetrical. Theta activity seen centrally in normal amounts metrical fashion Beta activity seen bifrontally and symmetrically Photic stimulation induces no important changes. No time is or evidence for potentially epileptogenic activity. Interpretation This is a normal EEG during wakefulness without evidence for focal or generalized encephalopathy or evidence for potentially epileptogenic activity Clinical Correlation Normal EEG during wakefulness without potentially epileptogenic activity being seen. The absence of the latter does not exclude the diagnosis of a seizure disorder Lalit Parekh MD
[2018-07-15] MEDS ORDERED: GADOBUTROL 65ML VIAL IV PRN (16:38)
--- NOTE | 2018-07-15 16:53 | Magnetic Resonance Report ---
Brain MRI WITH AND WITHOUT CONTRAST HISTORY: Seizure TECHNIQUE: Multiplanar multisequence MRI of the brain was performed both before and after the intrave nous administration of contrast. COMPARISON STUDY: None. FINDINGS: There are no areas of restricted diffusion to suggest acute infarction. The midline structu res are intact. The paranasal sinuses are clear. The mastoid air cells are clear. The ventricles are within normal limits for age. There is no mass, hematoma, midline shift. The major vascular flow-void s at the skull base are well maintained. Postcontrast sequences show no areas of abnormal enhancement . Best seen on axial T2 sequence image there is a focal cleft within the inferior right cereb ellar hemisphere. This is consistent with a congenital abnormality. IMPRESSION: 1. No acute intracranial abnormality. 2. 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 This could result in t he patient's seizures. Neurology consultation recommended. Electronically signed by: Noe Luis M.D. 07/15/2018 4:52 PM
[2018-07-15] MEDS: ATORVASTATIN 40 MG TAB PO SCH (20:13)
[2018-07-15] MEDS: ACETAMINOPHEN 325 MG TAB PO PRN (23:41)
[2018-07-16 06:11] LABS: Hematocrit (blood only) 36.6 % (42-52); Hemoglobin 11.9 g/dL (14.0-18.0); Mean Corpuscular Hgb Conc 32.5 g/dL (32-36); Mean Corpuscular Volume 87.4 fL (80-100); Mean Platelet Volume 9.8 fL (7.4-10.4); Platelet Count 201 K/uL (130-400); RDW Coefficient of Variation 13.6 % (11.5-14.5); RDW Standard Deviation 43.3 fL (36.4-46.3); Red Blood Count 4.19 M/uL (4.7-6.1); White Blood Count 7.43 K/uL (4.8-10.8)
[2018-07-16 06:36] LABS: BUN Creatinine Ratio 13.2 (10-20); Calcium 8.1 mg/dl (8.5-10.1); Creatinine Clr Calc Pharmacy 76.1 ml/min; Est GFR (Non-African American) 66.5; Magnesium 2.1 mg/dl (1.8-2.4); Potassium 3.9 mmol/L (3.5-5.1)
[2018-07-16] MEDS: INSULIN GLARGINE SOLOSTAR 100 UNITS/ML 3 ML PEN SC SCH ×2 (07:51→21:38)
[2018-07-16] MEDS: INSULIN ASPART 100 UNITS/ML 3 ML PEN SC SCH ×4 (07:51→21:37)
[2018-07-16] MEDS: GABAPENTIN 400 MG CAP PO SCH ×4 (07:53→20:19)
[2018-07-16] MEDS: cefTRIAXone SODIUM 1,000 MG in DEXTROSE 5% 50 ML IV SCH (07:53)
[2018-07-16] MEDS: ASPIRIN 81 MG ECTAB PO SCH (07:53)
[2018-07-16] MEDS: FENOFIBRATE - ORDER AWAITING ACTION SCH ×2 (07:54→15:41)
[2018-07-16] MEDS: ACETAMINOPHEN 325 MG TAB PO PRN (07:55)
--- NOTE | 2018-07-16 13:55 | Neurology Progress Note ---
Date of Service July 16, 2018 Assessment & Plan (1) Seizure: 1. MRI brain with and without - no acute findings. unlikley right cerebellar cleft is cause of seizures as this is a congenital abnormality 2. EEG -no seizure focus 3. Keppra 500 mg BID for now 4. optimize blood pressure, DM, HLD 5. discussed no driving until seizure free for 6 months he voiced understanding 6. no swimming or bathing alone no heights 7. medical management per primary team 8. UTI - treat to culture follow up in neurology 4-6 weeks after discharge from [facility] PAC schedule Supervising Physician Co-Signing Physician Notes I have seen and discussed above patient with Dr Lalit Parekh, neurology I saw Mr. Khalil today, reviewed his MRI report and examined him briefly. He is awake alert little lethargic and hopefully he will be able to tolerate this side effect of Keppra after a few more days or week or more on it. The MRI shows no significant lesions. He has stated that the cerebellar cleft might be a cause of his seizures but frankly my experience this would be most unusual there has been quite a bit of discussion regarding the role of the cerebellum and higher cognition and and in a patient no seizure activity so I suppose a cleft might indirectly be responsible for lack of inhibitory influence on an underlying or emergent seizure. This is a bit of a stretch and is totally academic at this point. For now the importance is that we see no space-occupying lesion, fresh infarction, evidence for cortical inflammation or indeed any other entities that might be more traditionally associated with seizure activity We are going to discharge him on 500 mg of Keppra orally twice a day, see him back in the clinic as outlined above and probably obtain at least a baseline Keppra level at this dose to ensure that it is somewhere in the wide "therapeutic" range of Keppra when used as an anticonvulsant For now neurology is going to sign off with discharge planning as noted above. Lalit Ornelas Saurabh is a 57 year old male with PMH DM II, HTN, HLD was brought to the ED with witnessed seizure. reported he was sitting on couch when he started staring and not responding to her. She then noticed him "stiffen up and start shaking with his eyes closed and was not responding" This lasted approximately 5 minutes. EMS was called and reports seizure activity in route and he was given 2 Versed. In the ER he was initially unresponsive and then awakened during ER course. +incontinence. He had a similar episode approximately 1 year ago and was evaluated at outside ER and reports no further workup. He recalls waking up in the morning and going to work. 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 He states he did not hit his head or have any LOC. His right wrist and shoulder is hurting from the fall. He returned home after work and does not remember anything after. According to his he ate dinner. He is currently complaining of R wrist and shoulder pain and his tongue hurts. He has chronic bilateral foot neuropathy and has been having left ankle pain "for awhile". 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 He sitting up in bedside chair states" I'd be better if I was home" denies CP, S OB, abdominal pain, one sided weakness, numbness tingling, N, V, vision changes, headache, bowel or bladder issues, starring spells morning jerks, no new events Physical Exam Vital Signs (Past 24 Hours): Last Vital Signs Temp 37.2 C 07/16/18 11:50 Pulse 82 07/16/18 11:50 Resp 24 07/16/18 11:50 BP 160/90 H 07/16/18 11:50 Pulse Ox 93 07/16/18 11:50 Gen: alert NAD PERRL/EOMI lungs course breath sounds CV RRR neuro: oriented to self place time no pronator drift Results & Data Laboratory Results Abnormal lab results 07/15/18 07/15/18 07/16/18 Range/Units 16:52 20:18 05:20 RBC 4.19 L (4.7-6.1) M/uL Hgb 11.9 L (14.0-18.0) g/dL Hct 36.6 L (42-52) % Chloride (98-107) mmol/L Glucose (70-99) mg/dl POC Glucose 117 H 123 H (70-99) Calcium (8.5-10.1) mg/dl 07/16/18 07/16/18 07/16/18 Range/Units 05:20 07:29 11:07 RBC (4.7-6.1) M/uL Hgb (14.0-18.0) g/dL Hct (42-52) % Chloride 109 H (98-107) mmol/L Glucose 121 H (70-99) mg/dl POC Glucose 155 H 184 H (70-99) Calcium 8.1 L (8.5-10.1) mg/dl Diagnostic Findings MRI brain- No acute intracranial abnormality. 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 This could result in the patient's seizures. Neurology consultation recommended.
--- NOTE | 2018-07-16 16:58 | Hospitalist Progress Note ---
Date of Service July 16, 2018 Assessment & Plan (1) Seizure: Resented with seizure-like activity, new diagnosis CT head:There is no hemorrhage, mass effect, or evidence of acute territorial ischemia by CT criteria. Neck CT:There is no evidence of fracture or subluxation involving the cervical spine. Spondylotic change MRI Brain: 1. No acute intracranial abnormality. 2. 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 This could result in the patient's seizures. Neurology consultation recommended. EEG: No seizure activity Appreciate input from neurology, patient started with p.o. Keppra 500 mg p.o. twice daily DMV will be notified, patient will need to be off driving /needs to be seizure free while on medication for at least 3-6 months No swimming alone, or climbing up heights till at least 4-6 weeks with p.o. Keppra, without seizure activity, new re-eval Urine Tox Screen: Negative Outpatient follow-up with neurology team (2) Renal insufficiency: Renal function improved/normalized Records from 2016 showed creatinine of 1.0. Cr: 1.84>>1.13 Given gentle IV fluids Abnormal UA Denies Dysuria Urine Culture: Alpha strep, no need to treat(asymptomatic bacteriuria) IV Rocephin discontinued (3) Wrist pain: Wrist Sprain Possible scapholunate tear s/p Mechanical Fall --Right Wrist X ray: Soft tissue swelling without acute fracture or dislocation. 3 mm round radiodensity projects over the medial hand. Correlate clinically to exclude foreign body.. Degenerative changes as above with widening of the scapholunate interval, possibly reflective of underlying scapholunate tear. --Continue Wrist Splint --Discussed with Ortho--Recommended to follow up as outpatient (4) Diabetes mellitus: DM II Diabetic Neuropathy A1C:9.3 Hold PO Meds Continue ISS Continue gabapentin for diabetic neuropathy (5) Hypertension: Stable Lisinopril kept on hold for acute renal failure, will be resumed on discharge Monitor (6) HLD (hyperlipidemia): Continue statin, fenofibrate DVT Px: -SCDs for now Disposition Possible discharge home tomorrow with p.o. Keppra follow-up with [facility] in clinic in 4-[address] Robby Branch for routine care Subjective Sitting on the chair, denies of any discomfort, no weakness or paresthesia, no headache, no seizure-like activity, alert awake oriented x3 Physical Exam Vital Signs (Past 24 Hours): Last Vital Signs Temp 36.5 C 07/16/18 15:28 Pulse 80 07/16/18 16:00 Resp 20 07/16/18 15:28 BP 145/72 H 07/16/18 15:28 Pulse Ox 97 07/16/18 15:28 Physical Exam: GENERAL: No sign of distress, HEENT: Sclera nonicteric, pink-purple bilateral equal reactive to light extraocular muscle intact Normal oral mucosa, neck: No JVD, no thyromegaly, trachea midline Lungs: Clear to auscultate, no wheeze or rales Cardiovascular: Regular S1 and S2, no murmur or gallop, no JVD, no lower extremity edema Abdomen: Soft, nontender, bowel sounds active, no hepatosplenomegaly Extremities: No rash or deformity, normal joint, Neuro: No focal neurological deficit, no dysarthria, no facial droop Psych: Alert awake oriented x3: Euthymic Skin: No rash LYMPH NODES: No cervical lymphadenopathy
[2018-07-16] MEDS: ATORVASTATIN 40 MG TAB PO SCH (20:19)
[2018-07-16] MEDS: levETIRAcetam 500 MG TAB PO SCH (20:20)
[2018-07-17] MEDS: FENOFIBRATE - ORDER AWAITING ACTION SCH ×2 (01:31→08:52)
[2018-07-17] MEDS: levETIRAcetam 500 MG TAB PO SCH (07:42)
[2018-07-17] MEDS: GABAPENTIN 400 MG CAP PO SCH ×2 (07:42→12:35)
[2018-07-17] MEDS: ASPIRIN 81 MG ECTAB PO SCH (07:43)
[2018-07-17] MEDS: INSULIN ASPART 100 UNITS/ML 3 ML PEN SC SCH ×2 (08:54→12:35)
[2018-07-17] MEDS: INSULIN GLARGINE SOLOSTAR 100 UNITS/ML 3 ML PEN SC SCH (08:55)
[2018-07-17 14:25] LABS: 7-Aminoclonaz, Confirm NEGATIVE NG/ML (CUTOFF=25); Hydro-Alp Ur, GC/MS NEGATIVE NG/ML (CUTOFF=25); Hydroxyethylflurazepam, Conf NEGATIVE NG/ML (CUTOFF=50); Hydroxytriazolam NEGATIVE NG/ML (CUTOFF=50); Lorazepam, Ur GC/MS NEGATIVE NG/ML (CUTOFF=50); Nordiazepam, Confirm NEGATIVE NG/ML (CUTOFF=50); Oxazepam Ur, GC/MS NEGATIVE NG/ML (CUTOFF=50); Temazepam, Confirm NEGATIVE NG/ML (CUTOFF=50)
--- NOTE | 2018-07-17 16:03 | Discharge Summary ---
Date of Service July 17, 2018 Admission HPI Per Admitting Provider Pt is 57 y/o M with PMH DM II, HTN, HLD presented to ER with complaint of seizure. History obtained from patient and , as patient somewhat groggy. Patient's reports this evening patient was sitting on couch when he started staring and not responding to her. She then noticed him "stiffen up and start shaking with his eyes closed and was not responding". reports this lasted approximately 5 minutes. Did not take BSG at home. EMS was called and reports seizure activity in route and patient was given 2 Versed. Upon ER arrival which is reported patient initially unresponsive and then awakened during ER course. Reported urinary incontinence. reports similar episode occurring approximately 1 year ago and was evaluated at outside ER and reports no further workup. Patient states that he remembers waking up in the morning and going to work. 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 Patient states that he did not hit his head or have any LOC. He denies any dizziness, CP or SOB prior to fall. Patient states that he injured his right wrist with the fall. Patient remembers returning home after work and does not remember anything after. Patient's reports that he ate dinner. Currently pt reports slight LONG and some R wrist discomfort. 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 Denies any recent illness. Denies fever/chills, diaphoresis, N/V/D, neck pain, CP, SOB, palpitations, cough, sore throat, otalgia, rhinorrhea, abdominal pain, extremity edema, rashes, other urinary symptoms. Denies alcohol or drug use. Principal Diagnosis Seizure Discharge Exam GENERAL: No sign of distress, HEENT: Sclera nonicteric, pink-purple bilateral equal reactive to light extraocular muscle intact Normal oral mucosa, neck: No JVD, no thyromegaly, trachea midline Lungs: Clear to auscultate, no wheeze or rales Cardiovascular: Regular S1 and S2, no murmur or gallop, no JVD, no lower extremity edema Abdomen: Soft, nontender, bowel sounds active, no hepatosplenomegaly Extremities: No rash or deformity, normal joint, Neuro: No focal neurological deficit, no dysarthria, no facial droop Psych: Alert awake oriented x3: Euthymic Skin: No rash LYMPH NODES: No cervical lymphadenopathy Discharge Data Allergies Allergy/AdvReac Type Severity Reaction Status Date / Time metformin AdvReac Severe Diarrhea Verified 07/14/18 21:59 Consultations 07/14/18 21:48 ED Decision to Admit Stat 07/14/18 23:57 Consult Neurology Routine 07/15/18 07:00 Consult Case Management - Discharge Planning Routine Ordered Studies 07/14/18 20:32 CT cervical spine wo con Stat CT head/brain wo con Stat 07/15/18 12:36 MR brain wo/w con Routine Hospital Course (1) Seizure: No further seizure-like activity since admission Tolerating Keppra 500 mg p.o. twice daily No confusion, no increased tiredness or lethargy Presented with seizure-like activity, new diagnosis CT head:There is no hemorrhage, mass effect, or evidence of acute territorial ischemia by CT criteria. Neck CT:There is no evidence of fracture or subluxation involving the cervical spine. Spondylotic change MRI Brain: 1. No acute intracranial abnormality. 2. 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 This could result in the patient's seizures. Neurology consultation recommended. EEG: No seizure activity Appreciate input from neurology, Patient will continue with p.o. Keppra 500 mg p.o. twice daily , patient will need to be off driving /needs to be seizure free while on medication for at least 3-6 months DMV will be notified No swimming alone, or climbing up heights till at least 4-6 weeks with p.o. Keppra, without seizure activity, new re-eval Urine Tox Screen: Negative Outpatient follow-up with neurology team (2) Renal insufficiency: Resolved Renal function improved/normalized Records from 2016 showed creatinine of 1.0. Cr: 1.84>>1.13 Given gentle IV fluids Abnormal UA Denies Dysuria Urine Culture: Alpha strep, no need to treat(asymptomatic bacteriuria) IV Rocephin discontinued (3) Wrist pain: Wrist Sprain Possible scapholunate tear s/p Mechanical Fall --Right Wrist X ray: Soft tissue swelling without acute fracture or dislocation. 3 mm round radiodensity projects over the medial hand. Correlate clinically to exclude foreign body.. Degenerative changes as above with widening of the scapholunate interval, possibly reflective of underlying scapholunate tear. --Continue Wrist Splint --Discussed with Ortho--Recommended to follow up as outpatient (4) Diabetes mellitus: DM II Diabetic Neuropathy A1C:9.3 Insulin sliding scale while inpatient, resume outpatient oral meds on discharge Continue gabapentin for diabetic neuropathy (5) Hypertension: Stable Continue lisinopril (6) HLD (hyperlipidemia): Continue statin, fenofibrate DVT Px: -SCDs Low risk, patient is ambulating Stable to be discharged home today follow-up with [facility] in clinic in 4-[address] Bustamante - [facility] for routine care Total Time Total Time Spent Total Time Spent (In Minutes): 40 minutes Total Time Includes: Examination of the Patient, Discharge Planning, Medication Reconciliation and Communication With Other Providers Discharge Plan Discharge Items Patient Disposition: Home - Self-Care Reason For Visit: SEIZURE Discharge Diagnosis: SEIZURE Discharge Goals: Decrease discomfort Activity: Resume your previous activity Non-emergency contact: Primary Care Provider Call non-emergency contact if: you have any medication questions Follow-up/Referrals: Roderick Bustamante [Primary Care Provider] - Lalit Parekh MD [Physician] - (FOLLOW UP IN 4-6 WEEKS PLEASE CALL OFFICE FOR APPOINTMENT ) Diet: Heart Healthy Addtl Provider Instructions: DO NOT DRIVE FOR 6 MONTHS DMV WILL BE NOTIFIED FOLLOW UP WITH NEUROLOGY IN 4-6 WEEKS no swimming or bathing alone no heights Prescriptions: New levetiracetam [Keppra] 500 mg Tablet 500 mg PO BID 30 Days Qty: 60 RF: 3 Continued atorvastatin [Lipitor] 40 mg tablet 40 mg PO HS RF: 0 glipizide [Glucotrol XL] 10 mg tablet extended release 24hr 10 mg PO BID RF: 0 gabapentin [Neurontin] 400 mg capsule 400 mg PO QID RF: 0 fenofibrate micronized 134 mg capsule 134 mg PO DAILY RF: 0 lisinopril [Zestril] 10 mg tablet 10 mg PO DAILY RF: 0 acarbose [Precose] 25 mg tablet 25 mg PO TIDM RF: 0 Victoza 3-Bill 0.6 mg/0.1 mL (18 mg/3 mL) pen injector 1.8 mg subcut DAILY RF: 0 aspirin [Aspir-81] 81 mg Tablet,Delayed Release (Dr/Ec) 81 mg PO DAILY RF: 0 Stand-Alone Forms: [facility] Discharge Orders: Discharge Order (Routine); Ordered 07/17/18 Ordered By: Aan Laura Messer Admission Data Admit Date/Time: 07/14/18 22:43 Attending Provider: Ana Laura Messer Admit Provider: Lalit Dillon Primary Care Provider: Roderick Bustamante. Other Providers: Espinoza Taylor ; Lalit Dillon ; Lalit Parekh Service: Medical Other Interventions: Discharge Summary Assessment (RN) Last Done: 07/17/18 13:29 DC Date/Time DO NOT enter until pt leaves facility: 07/17/18 16:00
== END 2018-07-17 16:00 | disposition home or self-care (01) | DRG 101 ==
LOC: ED 20:27 → 2E 22:43 → SUATTDRO 22:43 → 2E 23:03 → 4E 07-16 23:46